=== PATIENT | male | born 1950 | race Caucasian/White ===

== ENCOUNTER 2017-05-24 12:28 | Emergency (ER) | payer MEDICARE ==
[~2017-05-24] VITALS: Ht 182.9 cm; Wt 98.0 kg
[2017-05-24] MEDS ORDERED: IV NORMAL SALINE 1000ML BAG 1,000 ML IV ONE (13:00)
--- NOTE | 2017-05-24 13:03 | EKG ---
[facility] [address] [place] [id number] Test Date: 2017-05-24 Test Time: 12:39:31 Pat Name: MIGUE OKEEFE Department: Room: Gender: M Certified Alcohol And Drug Counselor: : 1950 Requested By: PATRICIA MCCLURE Order Number: [id number] Reading MD: Paulette Shannon Measurements Intervals [place] Rate: 50 P: -60 [place]: 150 QRS: 16 QRSD: 98 T: 28 QT: 456 QTc: 418 Interpretive Statements SINUS RHYTHM NORMAL EKG Electronically Signed On 05-25-2017 16:20:44 CDT by Paulette Shannon
--- NOTE | 2017-05-24 13:17 | RAD ---
Chest radiograph 05/24/2017 2:53 PM Indication: Dizziness, low blood pressure Comparison: None available Technique: Single portable upright frontal view of the chest is provided. Findings: Cardiomediastinal silhouette is enlarged. There is mild widening of the superior mediastinum, which may be in part secondary to prominence of the SVC. No pleural effusions, pulmonary vascular congestion or pneumothorax. The lungs are clear. Osseous structures are normal. Impression: Enlarged cardiac mediastinal silhouette. There is slight widening the superior mediastinum, which may be secondary to prominence of the SVC. Further evaluation with chest CT with contrast may be of benefit.
[2017-05-24 13:27] LABS: BASO # 0.1 x10^3/uL (0.0-0.2); BASO % 1 % (0-3); EOS % 1 % (0-3); HEMATOCRIT 28.5 % (39.0-53.0); HEMOGLOBIN 8.8 g/dL (13.0-17.5); LYMPH # 0.4 x10^3/uL (1.0-4.8); LYMPH % 5 % (24-48); MEAN CORPUSCULAR HEMOGLOBIN 25 pg (25-35); MEAN CORPUSCULAR HGB CONC 31 g/dL (31-37); MEAN CORPUSCULAR VOLUME 82 fL (79-100); MONO % 6 % (0-9); NEUT % 87 % (31-73); PLATELET COUNT 178 x10^3/uL (140-400); RED BLOOD COUNT 3.47 x10^6/uL (4.30-5.70); RED CELL DISTRIBUTION WIDTH 22.8 % (11.5-14.5); WHITE BLOOD COUNT 7.4 x10^3/uL (4.0-11.0)
[2017-05-24 13:44] LABS: CALCIUM 8.4 mg/dL (8.5-10.1); CREATININE 1.4 mg/dL (0.7-1.3); GFR 50.9; POTASSIUM 3.7 mmol/L (3.5-5.1)
[2017-05-24 13:45] LABS: INR 1.2 (0.8-1.1); PROTHROMBIN TIME PATIENT 14.3 SEC (11.7-14.0)
--- NOTE | 2017-05-24 13:48 | RAD ---
CT of the head without contrast, 05/24/2017: History: Dizziness The ventricles are within normal limits in size. There is no shift of the midline structures. There is no evidence of acute intracranial hemorrhage or mass effect. IMPRESSION: No acute intracranial abnormality is detected. PQRS Compliance Statement: One or more of the following individualized dose reduction techniques were utilized for this examination: 1. Automated exposure control 2. Adjustment of the mA and/or kV according to patient size 3. Use of iterative reconstruction technique
[2017-05-24 13:55] LABS: CKMB MASS 1.2 ng/mL (0.0-3.6); CREATINE KINASE 45 U/L (39-308)
[2017-05-24 14:00] LABS: ALBUMIN 2.9 g/dL (3.4-5.0); TOTAL BILIRUBIN 0.4 mg/dL (0.2-1.0); TOTAL PROTEIN 5.8 g/dL (6.4-8.2)
[2017-05-24] MEDS ORDERED: MECLIZINE HCL 12.5 MG TABLET. PO ONE (14:00)
[2017-05-24] MEDS ORDERED: IOHEXOL 300 MG/ML 75 ML VIAL IV ONE (14:30)
[2017-05-24] MEDS ORDERED: CONTRAST GIVEN MC PRN (14:30)
[2017-05-24 14:36] VITALS: BP 105/58
[2017-05-24 14:38] LABS: % EOS 5 % (0-5)
[2017-05-24 14:39] LABS: ANISOCYTOSIS MOD; OVALOCYTES FEW; PLT ESTIMATE ADEQUATE (ADEQUATE); POIKILOCYTOSIS SLIGHT
--- NOTE | 2017-05-24 14:39 | PHYS DOC ---
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 Patient states today he stood up and got very dizzy and slowly slid himself while holding a wall falling on his buttocks. Patient states it was not a hard fall because he was able to control himself. He states his blood pressures was low 2 days ago. He states his home health nurse told him not to take clonidine. He states today he accidentally took it. Patient denies any chest pain or shortness of breath but states he still dizzy. He states his dizziness is worse when he tries to sit up straight. Patient states he was admitted at [facility] a couple weeks ago for 17 days for pancreatitis. He states he got so weak in the hospital that they sent him to rehab. He states he just came out of rehab a couple days ago. Patient denies any history of alcohol use. Denies any use of illegal drugs. Denies any chest pain or shortness of breath. Denies any headache nausea vomiting. He states his PCP is at [facility]. Review of Systems Review of Systems Constitutional: Denies fever or chills [] Eyes: Denies change in visual acuity, redness, or eye pain [] HENT: Denies nasal congestion or sore throat [] Respiratory: Denies cough or shortness of breath [] Cardiovascular: No additional information not addressed in HPI [] GI: Denies abdominal pain, nausea, vomiting, bloody stools or diarrhea [] : Denies dysuria or hematuria [] Musculoskeletal: Denies back pain or joint pain [] Integument: Denies rash or skin lesions [] Neurologic: Dizziness Endocrine: Denies polyuria or polydipsia [] Current Medications Current Medications Current Medications Medications (Trade) Dose Ordered Sig/Jaison Start Time Stop Time Status Last Admin Dose Admin Info (Do NOT chart on this entry -- for MONITORING) 1 each PRN DAILY PRN 05/24/17 14:30 05/24/17 15:10 DC Iohexol (Omnipaque 300 Mg/ml) 60 ml 1X ONCE 05/24/17 14:30 05/24/17 14:31 DC Meclizine HCl (Antivert) 25 mg 1X ONCE 05/24/17 14:00 05/24/17 14:01 DC 05/24/17 13:30 25 MG Sodium Chloride 1,000 ml @ 1,000 mls/hr 1X ONCE 05/24/17 13:00 05/24/17 13:59 DC 05/24/17 13:16 1,000 MLS/HR Allergies Allergies Allergies Coded Allergies Type Severity Reaction Last Updated Verified No Known Drug Allergies 05/24/17 No Physical Exam Physical Exam Constitutional: Well developed, well nourished, no acute distress, non-toxic appearance. [] HENT: Normocephalic, atraumatic, bilateral external ears normal, oropharynx moist, no oral exudates, nose normal. [] Eyes: PERRLA, EOMI, conjunctiva normal, no discharge. [] Neck: Normal range of motion, no tenderness, supple, no stridor. [] Cardiovascular:Heart rate regular rhythm, no murmur [] Lungs & Thorax: Bilateral breath sounds clear to auscultation [] Abdomen: Bowel sounds normal, soft, no tenderness, no masses, no pulsatile masses. [] Skin: Warm, dry, no erythema, no rash. [] Back: No tenderness, no CVA tenderness. [] Extremities: No tenderness, no cyanosis, no clubbing, ROM intact, Bilateral LE with +1 edema Neurologic: Alert and oriented X 3, normal motor function, normal sensory function, no focal deficits noted. cranial nerves II-XII intact. Psychologic: Affect normal, judgement normal, mood normal. [] Current Patient Data Vital Signs Vital Signs Date Time Temp Pulse Resp B/P (MAP) Pulse Ox O2 Delivery O2 Flow Rate FiO2 05/24/17 14:36 74 17 105/58 (74) 97 Room Air 05/24/17 12:39 98.4 98.4 Lab Values Laboratory Tests Test 05/24/17 13:00 White Blood Count 7.4 x10^3/uL (4.0-11.0) Red Blood Count 3.47 x10^6/uL (4.30-5.70) L Hemoglobin 8.8 g/dL (13.0-17.5) L Hematocrit 28.5 % (39.0-53.0) L Mean Corpuscular Volume 82 fL (79-100) Mean Corpuscular Hemoglobin 25 pg (25-35) Mean Corpuscular Hemoglobin Concent 31 g/dL (31-37) Red Cell Distribution Width 22.8 % (11.5-14.5) H Platelet Count 178 x10^3/uL (140-400) Neutrophils (%) (Auto) 87 % (31-73) H Lymphocytes (%) (Auto) 5 % (24-48) L Monocytes (%) (Auto) 6 % (0-9) Eosinophils (%) (Auto) 1 % (0-3) Basophils (%) (Auto) 1 % (0-3) Neutrophils # (Auto) 6.4 x10^3uL (1.8-7.7) Lymphocytes # (Auto) 0.4 x10^3/uL (1.0-4.8) L Monocytes # (Auto) 0.5 x10^3/uL (0.0-1.1) Eosinophils # (Auto) 0.1 x10^3/uL (0.0-0.7) Basophils # (Auto) 0.1 x10^3/uL (0.0-0.2) Segmented Neutrophils % 81 % (35-66) H Lymphocytes % 9 % (24-48) L Monocytes % 5 % (0-10) Eosinophils % 5 % (0-5) Platelet Estimate Adequate (ADEQUATE) Poikilocytosis Slight Anisocytosis Mod Ovalocytes Few Prothrombin Time 14.3 SEC (11.7-14.0) H Prothrombin Time INR 1.2 (0.8-1.1) H D-Dimer (Carissa) 0.73 ug/mlFEU (0.00-0.50) H Sodium Level 139 mmol/L (136-145) Potassium Level 3.7 mmol/L (3.5-5.1) Chloride Level 102 mmol/L (98-107) Carbon Dioxide Level 26 mmol/L (21-32) Anion Gap 11 (6-14) Blood Urea Nitrogen 16 mg/dL (8-26) Creatinine 1.4 mg/dL (0.7-1.3) H Estimated GFR (Cockcroft-Gault) 50.9 BUN/Creatinine Ratio 11 (6-20) Glucose Level 149 mg/dL (70-99) H Calcium Level 8.4 mg/dL (8.5-10.1) L Magnesium Level 2.0 mg/dL (1.8-2.4) Total Bilirubin 0.4 mg/dL (0.2-1.0) Aspartate Amino Transferase (AST) 52 U/L (15-37) H Alanine Aminotransferase (ALT) 39 U/L (16-63) Alkaline Phosphatase 81 U/L (46-116) Creatine Kinase 45 U/L (39-308) Creatine Kinase MB (Mass) 1.2 ng/mL (0.0-3.6) Creatine Kinase MB Relative Index % (0-4) Troponin I Quantitative < 0.017 ng/mL (0.000-0.055) HX-Csl-U-Type Natriuretic Peptide 263 pg/mL (0-124) H Total Protein 5.8 g/dL (6.4-8.2) L Albumin 2.9 g/dL (3.4-5.0) L Albumin/Globulin Ratio 1.0 (1.0-1.7) Lipase 114 U/L (73-393) Thyroid Stimulating Hormone (TSH) 3.863 uIU/mL (0.358-3.74) H Laboratory Tests 05/24/17 13:00 Laboratory Tests 05/24/17 13:00 EKG EKG [] Radiology/Procedures Radiology/Procedures [] Course & Med Decision Making Course & Med Decision Making Pertinent Labs and Imaging studies reviewed. (See chart for details) Patient is in the ED status post falling at home. He is complaining of dizziness. He states he took clonidine accidentally. He states he has been hypotensive for 2 days and his home health nurse had requested he does not take his clonidine. On arrival to the ED he was still dizzy and with the following orthostatics supine 114/64 with a heart rate of 49, sitting 106/61 heart rate 57 , standing 94/52 heart rate 64. Patient was given 1 L of IV fluid. His d-dimer was 0.73. Ordered a CTA chest. Patient at this time is requesting to be discharged AMA. The nursing staff informed me he actually signed out AMA Dragon Disclaimer Dragon Disclaimer This electronic medical record was generated, in whole or in part, using a voice recognition dictation system. Departure Departure Impression: Primary Impression: Hypotension Additional Impression: Dizziness Disposition: 07 AGAINST MEDICAL ADVICE Condition: STABLE Referrals: ASHLEY URBINA (PCP) Problem Qualifiers Primary Impression: Hypotension Hypotension type: unspecified hypotension type Qualified Codes: I95.9 - Hypotension, unspecified PATRICIA MCCLURE KNOCKER OFF May 24, 2017 14:39
== END 2017-05-24 15:10 | disposition left against medical advice (07) ==
LOC: ER 12:28
DX: I95.9 Hypotension, unspecified (principal)
CPT/HCPCS: 36415; 70450; 71010; 80053; 82553; 83690; 83735; 83880; 84443; 84484; 85007; 85025; 85379; 85610; 93005; 96360; 99285; J7030; J8597

== ENCOUNTER 2017-11-07 15:48 | Emergency (ER) | payer MEDICARE ==
[2017-11-07] MEDS: IV NORMAL SALINE 1000ML BAG 1,000 ML IV ×2 (16:37)
[2017-11-07] MEDS: ONDANSETRON PF 4 MG/2 ML VIAL. IV ×2 (16:38)
[2017-11-07] MEDS: LIDO:MAALOX:DONNATAL 1:1:1 15 ML SINGLE DOSE SWSW ×2 (16:39)
[2017-11-07 16:51] LABS: BASO # 0.1 x10^3/uL (0.0-0.2); BASO % 1 % (0-3); EOS % 0 % (0-3); HEMATOCRIT 31.7 % (39.0-53.0); HEMOGLOBIN 9.6 g/dL (13.0-17.5); LYMPH # 0.3 x10^3/uL (1.0-4.8); LYMPH % 2 % (24-48); MEAN CORPUSCULAR HEMOGLOBIN 22 pg (25-35); MEAN CORPUSCULAR HGB CONC 30 g/dL (31-37); MEAN CORPUSCULAR VOLUME 73 fL (79-100); MONO # 0.8 x10^3/uL (0.0-1.1); MONO % 5 % (0-9); NEUT # 15.5 x10^3uL (1.8-7.7); NEUT % 93 % (31-73); PLATELET COUNT 235 x10^3/uL (140-400); RED BLOOD COUNT 4.35 x10^6/uL (4.30-5.70); RED CELL DISTRIBUTION WIDTH 19.7 % (11.5-14.5); WHITE BLOOD COUNT 16.7 x10^3/uL (4.0-11.0)
[2017-11-07 16:54] LABS: ADD MAN DIFF? YES
[2017-11-07 16:59] LABS: ANION GAP 8 (6-14); BLOOD UREA NITROGEN 21 mg/dL (8-26); BUN/CREATININE RATIO 18 (6-20); CALCIUM 8.2 mg/dL (8.5-10.1); CARBON DIOXIDE 26 mmol/L (21-32); CHLORIDE 97 mmol/L (98-107); CREATININE 1.2 mg/dL (0.7-1.3); GFR 60.6; GLUCOSE 177 mg/dL (70-99); POTASSIUM 4.2 mmol/L (3.5-5.1); SODIUM 131 mmol/L (136-145)
[2017-11-07 17:06] LABS: ALBUMIN 2.4 g/dL (3.4-5.0); ALBUMIN/GLOBULIN RATIO 0.6 (1.0-1.7); ALK PHOS 74 U/L (46-116); ALT (SGPT) 12 U/L (16-63); AST (SGOT) 16 U/L (15-37); LIPASE 309 U/L (73-393); TOTAL BILIRUBIN 0.6 mg/dL (0.2-1.0); TOTAL PROTEIN 6.3 g/dL (6.4-8.2)
[2017-11-07 17:21] LABS: % BANDS 7 % (0-9); % EOS 1 % (0-5); % LYMPHS 5 % (24-48); % MONOS 1 % (0-10); % SEGS 86 % (35-66)
[2017-11-07 17:27] LABS: HYPOCHROMIA MOD; PLT ESTIMATE ADEQUATE (ADEQUATE); POLYCHROMASIA SLIGHT
[2017-11-07 17:32] LABS: ANISOCYTOSIS SLIGHT; MICROCYTOSIS MARKED; OVALOCYTES MANY; SCHISTOCYTES OCC; TOXIC GRANULATION MARKED
== END 2017-11-07 18:20 | disposition home or self-care (01) ==
LOC: ER 15:48
DX: R10.13 Epigastric pain (principal); E87.1 Hypo-osmolality and hyponatremia; I50.9 Heart failure, unspecified; Z96.642 Presence of left artificial hip joint
CPT/HCPCS: 36415; 80053; 83690; 85007; 85025; 93005; 96361; 96374; 99285-25; J2405; J7030